=== PATIENT | male | born 1940 | race American Indian/Alaskan Native ===

== ENCOUNTER 2017-12-12 17:01 | Emergency (ER) | payer MEDICARE ==
[2017-12-12] MEDS ORDERED: XYLOCAINE 1%/ EPI 1:100,000 INFILTRATI ONE (20:18)
--- NOTE | 2017-12-12 20:18 | Emergency Department Report ---
HPI - General Chief Complaint: Fall Time Seen by Provider: 12/12/17 20:09 - HPI HPI: Room 18 The patient is a 77-year-old male presented with a chief complaint of head injury. The patient's daughter has reported that the patient lost his balance while standing AND fell striking the right occipital region of his head. There was no reported loss of consciousness. The patient has a history of dementia and is unable to provide a history Location: Head Duration: [See above] Quality: [See above] Severity: [See above] Modifying factors: [see above] Context: [see above] Mode of transportation: [not driving] ED Past Medical Hx - Past Medical History Previous Medical History?: Yes Hx Hypertension: Yes Hx CVA: Yes Hx Congestive Heart Failure: Yes Hx Diabetes: Yes Hx Renal Disease: Yes Hx Dementia: Yes Additional medical history: heart disease. dementia - Surgical History Past Surgical History?: Yes Hx Cholecystectomy: Yes Additional Surgical History: chest tubes. - Family History Family history: no significant - Social History Smoking Status: Never Smoker Substance Use Type: None - Medications Home Medications: Home Medications Medication Instructions Recorded Confirmed Last Taken Type Acetaminophen [Tylenol] 325 mg PO Q4H PRN 11/25/17 11/26/17 11/17/17 History Citalopram Hydrobromide 20 mg PO DAILY 11/25/17 11/26/17 11/17/17 History [Citalopram HBr] Escitalopram [Lexapro] 10 mg PO DAILY 11/25/17 11/25/17 11/17/17 History Famotidine [Pepcid] 20 mg PO DAILY 11/25/17 11/26/17 11/17/17 History L.acidoph,Paracasei, B.lactis 1 each PO DAILY 11/25/17 11/26/17 11/17/17 History [Probiotic] Memantine HCl 5 mg PO DAILY 11/25/17 11/26/17 11/17/17 History ALBUTEROL NEB's [Proventil 0.083% 2.5 mg IH Q4HRT PRN nebu 12/02/17 Unknown Rx NEBS] Lactulose [Cephulac] 20 gm PO BID oral.liqd 12/02/17 Unknown Rx Tramadol HCl [Ultram] 50 mg PO Q6H PRN #5 tablet 12/12/17 Unknown Rx ED Review of Systems ROS: Stated complaint: FALL Other details as noted in HPI Comment: Unobtainable due to pts medical conditions Physical Exam - Physical Exam Vital Signs: Vital Signs 12/12/17 19:36 Temperature 98.6 F Pulse Rate 88 Respiratory 16 Rate Blood Pressure 118/72 O2 Sat by Pulse 99 Oximetry Physical Exam: GENERAL: The patient is well-developed well-nourished male sitting on stretcher not appearing to be in acute distress. [] HEENT: Normocephalic. Approximately 2 cm laceration to the right occipital region. Hemostatic. Extraocular motions are intact. Patient has moist mucous membranes. NECK: Supple. No axial step-offs CHEST/LUNGS: Clear to auscultation. There is no respiratory distress noted. HEART/CARDIOVASCULAR: Regular. There is no tachycardia. There is no gallop rub or murmur. ABDOMEN: Abdomen is soft, nontender. Patient has normal bowel sounds. There is no abdominal distention. SKIN: There is no rash. There is no edema. There is no diaphoresis. NEURO: The patient is awake and alert. The patient is cooperative. The patient has normal speech MUSCULOSKELETAL:There is no limitation range of motion. ED Course Vital Signs 12/12/17 19:36 Temperature 98.6 F Pulse Rate 88 Respiratory 16 Rate Blood Pressure 118/72 O2 Sat by Pulse 99 Oximetry - Laceration /Wound Repair Occipital Wound Location: head Wound Length (cm): 1 Wound's Depth, Shape: linear Wound Explored: clean Irrigated w/ Saline (ccs): 250 Betadine Prep?: No (alcohol prep) Anesthesia: Lidocaine w/ Epi Volume Anesthetic (ccs): 5 Number of Sutures: 2 (Riki) ED Medical Decision Making - Radiology Data Radiology results: report reviewed (CT head, CT cervical spine), image reviewed (CT head, CT cervical spine) [facility] [address] [place] [address] Cat Scan Report Signed Patient: JAMA ZHANG MR#: [id number] : 1940 Acct:[id number] Age/Sex: 77 / M ADM Date: 12/12/17 Loc: ED Attending Dr: Ordering Physician: GARRETT RUBIN MD Date of Service: 12/12/17 Procedure(s): CT head/brain wo con Accession Number(s): [id number] cc: GARRETT RUBIN MD FINAL REPORT PROCEDURE: CT HEAD/BRAIN WO CON TECHNIQUE: Computerized tomography of the head was performed without contrast material. HISTORY: head injury after fall COMPARISON: No prior studies are available for comparison. FINDINGS: Skull and scalp: Normal.. Paranasal sinuses: Normal. Ventricles and subarachnoid spaces: Moderate dilatation. Cerebrum: No evidence of hemorrhage, acute infarction or mass. Atrophy with periventricular and deep white matter diminished densities consistent with microangiopathy. Lacunar infarcts of the basal ganglia. Cerebellum and brainstem: No evidence of hemorrhage, acute infarction or mass. Atrophy. Vasculature: Atherosclerotic calcifications. Comments: None. IMPRESSION : Involutional change with atrophy and microangiopathy. No hemorrhage. Transcribed By: BRP Dictated By: NARDA YADAV MD Electronically Authenticated By: NARDA YADAV MD Signed Date/Time: 12/12/172124 DD/ 24 TD/TT: 12/12/172124 [place] [id number] Cat Scan Report Signed Patient: JAMA ZHANG MR#: [id number] : 1940 Acct:[id number] Age/Sex: 77 / M ADM Date: 12/12/17 Loc: ED Attending Dr: Ordering Physician: GARRETT RUBIN MD Date of Service: 12/12/17 Procedure(s): CT cervical spine wo con Accession Number(s): [id number] cc: GARRETT RUBIN MD FINAL REPORT PROCEDURE: CT CERVICAL SPINE WO CON TECHNIQUE: Computerized tomography of the cervical spine was performed from the skull base to T1 without contrast material. HISTORY: head injury after fall COMPARISON: None FINDINGS: Straightening of the cervical lordosis. No acute fracture. Odontoid process is intact C1-2: Arthritic change.. C2-3: Disc bulge with mild spurring. C3-4: Disc bulge with mild spurring. Facet spurring on the left.. C4-5: Disc bulge with mild spurring.. C5-6: Disc bulge with spurring.. C6-7: Disc bulge with spurring. C7-T1: No significant abnormality. Other: Paraspinal soft tissues are intact. There are atherosclerotic calcifications.. IMPRESSION: Degenerative change. No fracture seen.. Transcribed By: KIKO Dictated By: NARDA YADAV MD Electronically Authenticated By: NARDA YADAV MD Signed Date/Time: 2127 DD/ 27 TD/TT: 12/12/172127 - Medical Decision Making The patient's daughter states that she is certain the patient has received a tetanus shot within the last several months. Stating that he is up-to-date having received his shots at [facility] - Differential Diagnosis scalp laceration, closed head injury, skull fracture, ICH Critical care attestation.: If time is entered above; I have spent that time in minutes in the direct care of this critically ill patient, excluding procedure time. ED Disposition Clinical Impression: Closed head injury, Scalp laceration Disposition: - TO HOME OR SELFCARE Is pt being admited?: No Does the pt Need Aspirin: No Condition: Stable Instructions: Staple Care (ED) Additional Instructions: Your riki need to be removed in 7 days. Return to the emergency department immediately should you develop worsening symptoms, fever, inability to tolerate food or liquid or any other concerns. Prescriptions: Tramadol HCl [Ultram] 50 mg PO Q6H PRN #5 tablet PRN Reason: Pain , Severe (7-10) Referrals: PRIMARY CARE, [Primary Care Provider] - 7-10 days Time of Disposition: 22:23
[2017-12-12] MEDS ORDERED: NACL 0.9% 500 ML IR ONE (20:19)
--- NOTE | 2017-12-12 21:26 | Cat Scan Report ---
FINAL REPORT PROCEDURE: CT HEAD/BRAIN WO CON TECHNIQUE: Computerized tomography of the head was performed without contrast material. HISTORY: head injury after fall COMPARISON: No prior studies are available for comparison. FINDINGS: Skull and scalp: Normal.. Paranasal sinuses: Normal. Ventricles and subarachnoid spaces: Moderate dilatation. Cerebrum: No evidence of hemorrhage, acute infarction or mass. Atrophy with periventricular and deep white matter diminished densities consistent with microangiopathy. Lacunar infarcts of the basal ganglia. Cerebellum and brainstem: No evidence of hemorrhage, acute infarction or mass. Atrophy. Vasculature: Atherosclerotic calcifications. Comments: None. IMPRESSION: Involutional change with atrophy and microangiopathy. No hemorrhage.
--- NOTE | 2017-12-12 21:29 | Cat Scan Report ---
FINAL REPORT PROCEDURE: CT CERVICAL SPINE WO CON TECHNIQUE: Computerized tomography of the cervical spine was performed from the skull base to T1 without contrast material. HISTORY: head injury after fall COMPARISON: None FINDINGS: Straightening of the cervical lordosis. No acute fracture. Odontoid process is intact C1-2: Arthritic change.. C2-3: Disc bulge with mild spurring. C3-4: Disc bulge with mild spurring. Facet spurring on the left.. C4-5: Disc bulge with mild spurring.. C5-6: Disc bulge with spurring.. C6-7: Disc bulge with spurring. C7-T1: No significant abnormality. Other: Paraspinal soft tissues are intact. There are atherosclerotic calcifications.. IMPRESSION: Degenerative change. No fracture seen..
[2017-12-12] MEDS ORDERED: POLYSPORIN TP ONE (22:22)
[2017-12-13 01:08] VITALS: BP 156/98
[2017-12-13] MEDS ORDERED: NACL 0.9% IR ONE (01:08)
== END 2017-12-13 02:04 | disposition home or self-care (01) ==
LOC: ED 17:01
DX: S01.01XA Laceration without foreign body of scalp, initial encounter (principal); I13.0 Hypertensive heart and chronic kidney disease with heart failure and stage 1 through stage 4 chronic kidney disease, or unspecified chronic kidney disease; N18.9 Chronic kidney disease, unspecified; E11.22 Type 2 diabetes mellitus with diabetic chronic kidney disease; Z90.49 Acquired absence of other specified parts of digestive tract; W20.8XXA Other cause of strike by thrown, projected or falling object, initial encounter; Y93.89 Activity, other specified; Y92.89 Other specified places as the place of occurrence of the external cause; Y99.8 Other external cause status
CPT/HCPCS: 70450; 72125

== ENCOUNTER 2018-04-03 10:35 | Outpatient (CLI) | payer MEDICARE ==
--- NOTE | 2018-04-03 11:36 | Fluoroscopy Report ---
MODIFIED BARIUM SWALLOW History: dysphagia. Findings: Video radiography was provided by the radiologist for speech therapy to assess the swallowing mechanism. 1 fluoroscopic image was captured. Impression: Successful modified barium swallow.
== END 2018-04-03 10:36 | disposition home or self-care (01) ==
LOC: PT 10:35
PROVIDERS: ATTEND Internal Medicine
DX: R13.10 Dysphagia, unspecified (principal); I11.0 Hypertensive heart disease with heart failure; I50.9 Heart failure, unspecified; Z90.49 Acquired absence of other specified parts of digestive tract
CPT/HCPCS: 74230